=== PATIENT | female | born 1980 | race Two or more races ===

== ENCOUNTER 2022-04-11 05:50 | Day surgery (SDC) | payer OTHER ==
[~2022-04-11] VITALS: Ht 162.6 cm; Wt 101.6 kg
[2022-04-11] MEDS ORDERED: PERCOCET 5-3251 EACH PO (09:44)
[2022-04-11] MEDS ORDERED: IBU800 MG PO (09:44)
[2022-04-11] MEDS ORDERED: SIMETHICONE80 MG PO (09:44)
[2022-04-11] MEDS ORDERED: COLACE100 MG PO (09:44)
== END 2022-04-11 11:50 | disposition home or self-care (01) ==
LOC: CIR.AMB 05:50
PROVIDERS: ATTEND Student in an Organized Health Care Education/Training Program
DX: Z30.2 Encounter for sterilization (principal); Z30.432 Encounter for removal of intrauterine contraceptive device; Z20.822 Contact with and (suspected) exposure to COVID-19